=== PATIENT | male | born 1980 | race Caucasian/White ===

== ENCOUNTER → 2020-03-30 | Outpatient (CLI) | payer MEDICARE, MEDICAID ==
[~2020-03-30] MED LIST: BACLOFEN; BACLOFEN20 MG PO; CIPRO500 MG PO; CLARITIN10 MG PO; COLACE100 MG PO; DITROPAN5 MG PO; FIBERCON625 MG PO; MULTIPLE VITAMI1 CAP PO; NEURONTIN300 MG PO; NEURONTIN400 MG PO; SEPTRA 400 MG-81 TAB PO; VANCOCIN1000 MG/25 IV; ZANAFLEX2 M1 PO; ZINC SULFATE 1566 MG PO; ZYVOX600 MG PO; [UNRECOGNIZED DRUG - REMARK]
== END | disposition home or self-care (01) ==
LOC: COVID19 02:12
PROVIDERS: ATTEND Internal Medicine
DX: Z20.828 Contact with and (suspected) exposure to other viral communicable diseases (principal)

== ENCOUNTER 2020-05-17 14:36 | Emergency (ER) | payer MEDICARE, MEDICAID ==
[~2020-05-17] VITALS: Ht 182.8 cm; Wt 72.6 kg
== END 2020-05-17 17:02 | disposition left against medical advice (07) ==
LOC: ED 14:36
DX: T83.098A Other mechanical complication of other urinary catheter, initial encounter (principal); Z53.21 Procedure and treatment not carried out due to patient leaving prior to being seen by health care provider

== ENCOUNTER → 2020-10-15 | Outpatient (CLI) | payer MEDICARE, MEDICAID ==
[2020-10-15 15:22] LABS: BASO % 0.4 % (0.0-1.0); EOS # 0.3 10*3/uL (0.0-0.4); EOS % 4.1 % (1.0-4.0); HEMATOCRIT 46.3 % (42.0-52.0); LYMPH # 1.6 10*3/uL (1.3-4.4); LYMPH % 19.4 % (27.0-41.0); MEAN CELL VOLUME 86.7 fl (80.0-94.0); MEAN CORPUSCULAR HGB 28.5 pg (27.0-31.0); MEAN CORPUSCULAR HGB CONC 32.8 g/dl (33.0-37.0); MEAN PLATELET VOLUME 10.1 fl (9.6-12.3); MONO # 0.6 10*3/uL (0.1-1.0); MONO % 6.9 % (3.0-9.0); NEUT # 5.5 10*3/uL (2.3-7.9); NEUT % 68.7 % (47.0-73.0); PLATELET COUNT AUTOMATED 292 10*3/uL (130-400); RED BLOOD COUNT 5.34 10*6/uL (4.50-5.90); RED CELL DISTRI WIDTH 14.1 % (0-14.5)
[2020-10-15 15:28] LABS: BILIRUBIN Negative (Negative); BLOOD 1+ (Negative); CLARITY Clear (Clear); COLOR Yellow (Yellow); GLUCOSE Negative (Negative); KETONE Negative (Negative); LEUKO ESTERASE Trace (Negative); NITRITE Negative (Negative); PH 6.5 (4.5-8.0)
[2020-10-15 15:52] LABS: ALBUMIN 3.2 gm/dl (3.1-4.5); ALKALINE PHOSPHATASE 131 U/L (45-117); BUN 10 mg/dl (7-24); CHLORIDE 104 mmol/L (98-107); CREATININE 0.79 mg/dL (0.70-1.30); POTASSIUM 3.7 mmol/L (3.5-5.1); SGOT/AST 21 IU/L (3-35); SGPT/ALT 39 U/L (12-78); SODIUM 138 mmol/L (136-145); TOTAL PROTEIN 7.7 gm/dL (6.4-8.2)
[2020-10-15 16:57] LABS: CALCIUM OXALATE CRYSTALS Trace
== END | disposition home or self-care (01) ==
LOC: US 13:44 → LAB 13:44 → US 14:00
PROVIDERS: ATTEND Urology
DX: N32.89 Other specified disorders of bladder (principal); N13.39 Other hydronephrosis; R31.9 Hematuria, unspecified; Z96.0 Presence of urogenital implants

== ENCOUNTER → 2021-10-03 | Outpatient (CLI) | payer MEDICARE, MEDICAID | END | disposition home or self-care (01) | LOC: RAD 14:11 | PROVIDERS: ATTEND Internal Medicine | DX: M48.061 Spinal stenosis, lumbar region without neurogenic claudication (principal) ==